=== PATIENT | male | born 1960 | race Caucasian/White ===

== ENCOUNTER 2022-09-29 16:05 | Outpatient (CLI) | payer MEDICAID, SELFPAY ==
[2022-09-29 16:23] LABS: ALT 25 U/L (16-63); AST 17 U/L (15-37); Albumin 4.1 g/dL (3.4-5.0); Alkaline Phosphatase 46 U/L (46-116); Anion Gap 6.7 mmol/L (3-11); BUN 22 mg/dL (7-18); Bilirubin, Total 0.5 mg/dL (0.2-1.0); CO2 29.3 mmol/L (21.0-32.0); CREATININE 1.1 mg/dL (0.70-1.30); Calcium 9.2 mg/dL (8.5-10.1); Calculated LDL 107 mg/dL (<100); Chloride 105 mmol/L (98-107); Cholesterol 199 mg/dL (<200); Glucose 91 mg/dL (74-106); HDL Cholesterol 76 mg/dL (40-60); Potassium 4.3 mmol/L (3.5-5.1); Sodium 141 mmol/L (136-145); Total Protein 7.3 g/dL (6.4-8.2); Triglyceride 81 mg/dL (<150)
== END 2022-09-29 16:06 | disposition home or self-care (01) ==
LOC: LBO 16:07
PROVIDERS: PCP Student in an Organized Health Care Education/Training Program; Visit Provider Family Medicine
DX: Z13.220 Encounter for screening for lipoid disorders (principal)
CPT/HCPCS: 36415; 80053; 80061

== ENCOUNTER 2023-11-17 05:11 | Outpatient (CLI) | payer MEDICAID, SELFPAY ==
[2023-11-17 08:58] LABS: Folate > 20.0 ng/mL (8.6-20.0)
[2023-11-17 09:07] LABS: Vitamin B12 184 pg/mL (193-986)
[2023-11-17 17:52] LABS: PSA, Screening 3.6 ng/mL (<=4.5)
[2023-11-22 11:18] LABS: Testosterone, Total 435 ng/dL (240-950)
== END 2023-11-17 05:12 | disposition home or self-care (01) ==
LOC: LBO 05:11
PROVIDERS: Absent Provider Student in an Organized Health Care Education/Training Program; PCP Student in an Organized Health Care Education/Training Program; Visit Provider Student in an Organized Health Care Education/Training Program
DX: R03.0 Elevated blood-pressure reading, without diagnosis of hypertension; F32.9 Major depressive disorder, single episode, unspecified; E63.9 Nutritional deficiency, unspecified; Z12.5 Encounter for screening for malignant neoplasm of prostate
CPT/HCPCS: 36415; 84153; 84403; 82607; 82746; 84443

== ENCOUNTER 2024-07-25 02:41 | Outpatient (CLI) | payer MEDICAID, SELFPAY ==
[2024-07-25 08:22] LABS: Anion Gap 7.5 mmol/L (3-11); BUN 26 mg/dL (7-18); CO2 30.5 mmol/L (21.0-32.0); CREATININE 1.2 mg/dL (0.70-1.30); Calcium 9.3 mg/dL (8.5-10.1); Chloride 104 mmol/L (98-107); Estimated GFR 67.53 (mL/min/1.73m2); Glucose 126 mg/dL (74-106); Potassium 4.1 mmol/L (3.5-5.1); Sodium 142 mmol/L (136-145); Vitamin B12 221 pg/mL (193-986); Vitamin D 25 Total 42.2 ng/mL (30-100)
[2024-07-25 19:02] LABS: PSA, Screening 3.7 ng/mL (<=4.5)
== END 2024-07-25 02:42 | disposition home or self-care (01) ==
LOC: LBO 02:41
PROVIDERS: PCP Student in an Organized Health Care Education/Training Program; Visit Provider Student in an Organized Health Care Education/Training Program
DX: Z12.5 Encounter for screening for malignant neoplasm of prostate (principal); Z91.89 Other specified personal risk factors, not elsewhere classified; R42 Dizziness and giddiness; R79.89 Other specified abnormal findings of blood chemistry; K90.9 Intestinal malabsorption, unspecified; Z78.9 Other specified health status; E53.8 Deficiency of other specified B group vitamins
CPT/HCPCS: 36415; 80048; 82306; 84153; 82607

== ENCOUNTER 2025-02-06 14:06 | Outpatient (REF) | payer MEDICAID, SELFPAY ==
[2025-02-06 13:30] LABS: Bilirubin Negative (Negative); Blood Negative (Negative); Clarity Clear (Clear); Glucose Negative (Negative); Ketones Negative (Negative); Leukocyte Esterase Negative (Negative); Nitrite Negative (Negative); Urobilinogen 0.2 mg/dL (Up to 0.2)
== END 2025-02-06 14:07 | disposition home or self-care (01) ==
LOC: LBN 14:06
PROVIDERS: PCP Nurse Practitioner Family; Visit Provider Nurse Practitioner Family
DX: R39.12 Poor urinary stream (principal)
CPT/HCPCS: 81003

== ENCOUNTER 2025-08-20 00:20 | Outpatient (CLI) | payer MEDICARE, SELFPAY ==
[2025-08-20 10:07] LABS: Anion Gap 8.4 mmol/L (3-11); BUN 22 mg/dL (9-23); CO2 26.6 mmol/L (20.0-31.0); Calcium 9.2 mg/dL (8.3-10.6); Chloride 107 mmol/L (98-107); Glucose 112 mg/dL (74-106); Potassium 4.3 mmol/L (3.5-5.1); Sodium 142 mmol/L (136-145)
[2025-08-20 10:08] LABS: Vitamin B12 207 pg/mL (211-911)
== END 2025-08-20 00:21 | disposition home or self-care (01) ==
LOC: LBO 00:20
PROVIDERS: PCP Nurse Practitioner Family; Referring Provider Nurse Practitioner Family; Visit Provider Nurse Practitioner Family
DX: N18.2 Chronic kidney disease, stage 2 (mild) (principal); E53.8 Deficiency of other specified B group vitamins
CPT/HCPCS: 36415; 80048; 82607